=== PATIENT | male | born 1950 | race Caucasian/White ===

== ENCOUNTER 2017-08-16 13:35 | Inpatient (IN) | payer OTHER, MEDICARE ==
[~2017-08-16] VITALS: Ht 182.9 cm; Wt 76.8 kg
[2017-10-04] MEDS ORDERED: TYLENOL 325MG325 MG PO (16:07)
[2017-10-04] MEDS ORDERED: NORVASC 10MG10 MG PO (16:07)
[2017-10-07] VITALS (11 sets, daily range): BP systolic 122–160; BP diastolic 72–84; PULSE 60–100; TEMP 97.6–98.6
[2017-10-07] MEDS ORDERED: FOLIC ACID0.4 MG PO (06:00)
[2017-10-07] MEDS ORDERED: VITAMINC1000TA (06:00)
[2017-10-07] MEDS ORDERED: FERROUS SU325 MG/TAB PO (06:00)
[2017-10-07 07:08] LABS: CALCIUM 9.5 mg/dL (8.4-10.2); CREATININE, serum 1.79 mg/dL (0.66-1.25); POTASSIUM 4.3 mmol/L (3.4-5.0)
[2017-10-08] VITALS (7 sets, daily range): BP systolic 126–150; BP diastolic 66–75; PULSE 74–91; TEMP 98–98.5
[2017-10-08] MEDS ORDERED: ULTRAM 50MG TAB50 MG PO (06:03)
[2017-10-08] MEDS ORDERED: NORCO 325 MG-7.1 TAB PO (06:03)
[2017-10-08] MEDS ORDERED: XARELTO10 MG PO (06:04)
[2017-10-08] MEDS ORDERED: CELEBREX 200MG200 MG PO (06:04)
[2017-10-08 07:35] LABS: HEMOGLOBIN 8.6 g/dl (13.5-18.0)
[2017-10-09 04:47] VITALS: BP 135/76; PULSE 100; TEMP 98
[2017-10-09 06:11] LABS: HEMATOCRIT 23.6 % (42.0-52.0); HEMOGLOBIN 7.6 g/dl (13.5-18.0)
[2017-10-09 07:07] VITALS: BP 138/64; PULSE 84; TEMP 97.8
[2017-10-09 08:40] VITALS: BP 129/66
[2017-10-09 11:19] VITALS: BP 142/69; PULSE 87; TEMP 98
[2017-10-09 16:00] VITALS: BP 149/77; PULSE 94; TEMP 98.4
[2017-10-09 20:00] VITALS: BP 145/95; PULSE 106; TEMP 98.9
[2017-10-10 04:55] VITALS: BP 130/68; PULSE 91; TEMP 98.3
[2017-10-10 07:14] LABS: HEMATOCRIT 24.6 % (42.0-52.0); HEMOGLOBIN 7.9 g/dl (13.5-18.0)
[2017-10-10 08:00] VITALS: BP 160/61; PULSE 97; TEMP 98.5
== END 2017-10-10 10:25 | disposition swing bed (61) | DRG 462 ==
LOC: JCC 10-07 05:14
PROVIDERS: Nurse Anesthetist, Certified Registered; Orthopaedic Surgery; Physician Assistant
PROC: 0SRC0J9 Replacement of Right Knee Joint with Synthetic Substitute, Cemented, Open Approach (ICD-10-PCS; 2017-10-07)
PROC: 0SRD0J9 Replacement of Left Knee Joint with Synthetic Substitute, Cemented, Open Approach (ICD-10-PCS; principal; 2017-10-07 07:30)
DX: M17.0 Bilateral primary osteoarthritis of knee (principal)
CPT/HCPCS: A4314; A9284; C1713; C1776; J0690; J1100; J1885; J2250; J2405; J2704; J3010; J7120; J7121

== ENCOUNTER → 2017-09-02 | Outpatient (CLI) | payer OTHER | LOC: COL.RAD 08:06 | DX: M17.0 Bilateral primary osteoarthritis of knee (principal) ==

== ENCOUNTER → 2017-09-30 | Outpatient (CLI) | payer OTHER | LOC: COL.LAB 08:23 | DX: Z01.812 Encounter for preprocedural laboratory examination (principal); M17.0 Bilateral primary osteoarthritis of knee ==

== ENCOUNTER 2024-06-04 08:05 | Inpatient (IN) | payer MEDICARE, OTHER ==
[~2024-06-04] VITALS: Ht 182.9 cm; Wt 68.8 kg
[2024-06-04] VITALS (7 sets, daily range): BP systolic 120–148; BP diastolic 66–77; PULSE 83–99; TEMP 98.5–98.9
[~2024-06-04 08:05] MED LIST: CELEBREX 200MG200 MG PO; FERROUS SU325 MG/TAB PO; FOLIC ACID0.4 MG PO; NORCO 325 MG-7.1 TAB PO; NORVASC 10MG10 MG PO; TYLENOL 325MG325 MG PO; ULTRAM 50MG TAB50 MG PO; VITAMINC1000TA; XARELTO10 MG PO
[2024-06-04] MEDS ORDERED: Albuterol/Ipratropium 3 MG-0.5 MG/3 ML Neb Soln IH ONE (08:15)
[2024-06-04 08:23] LABS: HEMATOCRIT 48.1 % (42.0-52.0); HEMOGLOBIN 15.9 g/dl (13.5-18.0); MEAN CELL VOLUME 94 fl (80.0-100.0); MEAN CORPUSCULAR HEMOGLOBIN 31 pg (27-31); MEAN CORPUSCULAR HGB CONC 33 g/dl (33.0-37.0); MEAN PLATELET VOLUME 9.8 fl (7.4-10.4); PLATELET COUNT 183 K/mm3 (130-400); RED BLOOD COUNT 5.11 M/mm3 (4.20-5.60); REDCELL DISTRIBUTION WIDTH-CV 13.8 % (11.5-14.5)
[2024-06-04 08:29] LABS: PROTHROMBIN TIME 11.4 SECONDS (9.7-12.8)
[2024-06-04] MEDS ORDERED: Acetaminophen 500 MG TAB PO ONE (08:30)
[2024-06-04 08:36] LABS: ARTERIAL BLOOD GAS HCO3 26.1 meq/L (22-26); ARTERIAL BLOOD GAS PCO2 35.5 mmHg (35-45); ARTERIAL BLOOD GAS PO2 82.6 mmHg (80-100); ARTERIAL BLOOD GAS pH 7.48 (7.35-7.45)
[2024-06-04 08:44] LABS: ALBUMIN 3.1 g/dL (3.4-4.8); BILIRUBIN,TOTAL 0.5 mg/dL (0.2-1.2); CREATININE, serum 2.07 mg/dL (0.72-1.25); POTASSIUM 4.6 mEq/L (3.5-4.5); TOTAL PROTEIN 6.3 g/dl (6.2-8.1)
[2024-06-04 08:53] LABS: TROPONIN-I 0.022 ng/mL (0.00-0.033)
[2024-06-04] MEDS ORDERED: MIRALAX PA17 GM/Dose PO (09:12)
[2024-06-04] MEDS ORDERED: ASPIRIN 81M81 MG/TA2 PO (09:12)
[2024-06-04] MEDS ORDERED: VITAMIN D31000 IU PO (09:15)
[2024-06-04] MEDS ORDERED: KEPPRA 500MG500 MG PO (09:16)
[2024-06-04] MEDS ORDERED: PROTONIX 40MG T40 MG PO (09:16)
[2024-06-04] MEDS ORDERED: PREDNISONE10 MG PO (09:17)
[2024-06-04] MEDS ORDERED: VITAMINC1000TA (09:17)
[2024-06-04] MEDS ORDERED: TRELEGY ELLIPT1 EACH IH (09:18)
[2024-06-04] MEDS ORDERED: REMERON 15M15 MG/TA1 PO (09:18)
[2024-06-04] MEDS ORDERED: LIPITOR20 MG PO (09:18)
[2024-06-04] MEDS ORDERED: Iohexol 300 - 100 ML VIAL IV ONE (09:19)
[2024-06-04] MEDS ORDERED: NS 100 ML IV SCH (09:19)
[2024-06-04] MEDS ORDERED: ENSURE 237 ML237 ML PO (09:19)
[2024-06-04] MEDS ORDERED: TYLENOL 500MG500 MG (09:22)
[2024-06-04] MEDS ORDERED: LEVOXYL0.05 MG PO (09:23)
[2024-06-04] MEDS ORDERED: PROAIR HFA0.09 MG/AC IH (09:23)
[2024-06-04 10:23] LABS: EOSINOPHIL 2 % (0-4); LYMPHOCYTE 4 % (20.0-51.0); NEUTROPHILS 83 % (42.0-75.2); PLATELET ESTIMATE NORMAL (NORMAL)
[2024-06-04] MEDS ORDERED: methylPREDNISolone Sod Succ 125 MG/2 ML VIAL IV ONE (11:00)
[2024-06-04] MEDS ORDERED: Acetaminophen 500 MG TAB PO PRN (12:45)
[2024-06-04] MEDS ORDERED: Ondansetron 4 MG/2 ML VIAL IV PRN (12:45)
[2024-06-04] MEDS ORDERED: Albuterol/Ipratropium 3 MG-0.5 MG/3 ML Neb Soln IH PRN (13:00)
[2024-06-04] MEDS ORDERED: methylPREDNISolone Sod Succ 125 MG/2 ML VIAL IV SCH (13:00)
[2024-06-04] MEDS ORDERED: Albuterol/Ipratropium 3 MG-0.5 MG/3 ML Neb Soln IH SCH (14:00)
--- NOTE | 2024-06-04 15:16 | NUR ---
PATIENT ARRIVED TO MEDICAL FLOOR AT APPROX 1450. PATIENT IS ALERT AND ORIENTED. WITH PATIENT. VSS. PATIENT STABLE ON 9L VIA OXYMASK. PATIENT'S RR 30S-LOW 40S AND SHALLOW. LUNG SOUNDS ARE DIMINISHED. DENIES PAIN OR DISCOMFORT, JUST DIFFICULTY BREATHING. THIS RN ATTEMPTED TO CALL [facility] FOR MEDICATION REC, BUT LEFT A VOICEMAIL. ADMISSION ASSESSMENT AND INTAKE COMPLETE. BUTTOCKS IS RED, BLANCHABLE, AND INTACT. PATIENT STATES HE IS CONTINENT OF BOWEL AND BLADDER. THIS RN EDUCATED PATIENT TO CALL [facility] NEEDING TO GET UP AND USE RR, D/T SOA AND O2 TUBING. PATIENT AGREES. DENIES FURTHER NEEDS OR CONCERNS AT THIS TIME.
--- NOTE | 2024-06-04 15:35 | NUR ---
THIS RN CALLED [facility] RN TO COMPLETE MED REC.
--- NOTE | 2024-06-04 15:40 | NUR ---
FOUND PT ON 8-9LPM OXYMASK 98%SPO2. SCHEDULED DUONEB ADMINISTERED. TITRATED TO 6 LPM OXYMASK 97%SPO2 AT THIS TIME.
[2024-06-04] MEDS ORDERED: Budesonide Neb Susp 0.5 MG/2 ML AMP IH SCH (19:00)
[2024-06-04] MEDS ORDERED: levETIRAcetam 500 MG TAB PO SCH (21:00)
[2024-06-04] MEDS ORDERED: Mirtazapine 15 MG TAB PO SCH (21:00)
[2024-06-04] MEDS ORDERED: Atorvastatin 20 MG TAB PO SCH (21:00)
[2024-06-04] MEDS ORDERED: guaiFENesin Oral Soln 200 MG/10 ML UD PO PRN (21:30)
[2024-06-05] VITALS (12 sets, daily range): BP systolic 102–151; BP diastolic 61–86; PULSE 84–115; TEMP 97.2–98.2
[2024-06-05 07:03] LABS: HEMOGLOBIN 14.2 g/dl (13.5-18.0); MEAN CELL VOLUME 91 fl (80.0-100.0); MEAN CORPUSCULAR HEMOGLOBIN 32 pg (27-31); MEAN CORPUSCULAR HGB CONC 35 g/dl (33.0-37.0); MEAN PLATELET VOLUME 10.2 fl (7.4-10.4); PLATELET COUNT 189 K/mm3 (130-400); REDCELL DISTRIBUTION WIDTH-CV 13.7 % (11.5-14.5)
[2024-06-05 07:20] LABS: CALCIUM 9.4 mg/dL (8.4-10.2); CREATININE, serum 2.02 mg/dL (0.72-1.25)
[2024-06-05 08:27] LABS: BAND 3 % (0-10); LYMPHOCYTE 3 % (20.0-51.0); NEUTROPHILS 87 % (42.0-75.2); PLATELET ESTIMATE NORMAL (NORMAL)
[2024-06-05] MEDS ORDERED: Umeclidinium/Vilanterol 62.5-25 MCG INHALATION/INHALER IH SCH (09:00)
[2024-06-05] MEDS ORDERED: Fluticasone/Umeclidinium/Vilanterol **** subs to Budesonide + Umeclid/Vilant IH SCH (09:00)
--- NOTE | 2024-06-05 09:50 | NUR ---
PATIENT RESTING IN BED. ALERT AND ORIENTED. SHIFT ASSESSMENT COMPLETE. PATIENT BEGAN GETTING AGITATED WHILE SPEAKING TO THIS RN. PATIENT STATED "I DON'T DRINK WATER OUT OF A WATER BOTTLE, I DON'T EAT EGSS. I DON'T TAKE SHOWERS, I HAVEN'T TAKEN A SHOWER SINCE THE MIDDLE SCHOOL. I AM A 73 YEAR OLD MAN AND I DON'T CHANGE THE WAY I DO THINGS." THIS RN ATTEMPTED TO REASSURE PATIENT THAT WE CAN'T ALWAYS ANICIPATE THESE NEEDS AND THE PATIENT SHOULD RELAY THESE REQUESTS TO STAFF. 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 DENIES FURTHER NEEDS OR CONCERNS AT THIS TIME.
--- NOTE | 2024-06-05 10:45 | NUR ---
sawmill relief worker notes pt is in isolation for COVID-19. BALBIR called , Yessenia [phone] to discuss intake information. She reports pt resides at [facility]. Pt obtains medications from [facility] (Remedi) with no difficulties. She confirms he has Medicare A/B and [employer] Insurance. states he needs assistance with ADLS and uses a FWW and oxygen for DME. She reports to be DPOA-HC and [facility] has a copy. was agreeable to pt returning to [facility] for rehab. BALBIR called Darren at [facility] who will email main BALBIR Plummer the DPOA. Discharge Plan: return to [facility]
--- NOTE | 2024-06-05 14:11 | NUR ---
transit survey worker emailed updates to Darren at [facility]. Discharge Plan: return to SNF
--- NOTE | 2024-06-05 17:36 | NUR ---
PATIENT STATES HE HAD A GREAT DAY. HE WAS PLEASED WITH THE PRODUCTIVE DAY, HAVING A BATH, SEEING PT/OT, ETC. PATIENT APPEARS MORE COMFORTABLE. AT BEDSIDE. DENIES FURTHER NEEDS OR CONCERNS AT THIS TIME.
--- NOTE | 2024-06-05 20:09 | NUR ---
PT SWITCHED FROM NC TO OXYMASK POST BREATHING TX.
[2024-06-06] VITALS (10 sets, daily range): BP systolic 109–136; BP diastolic 63–78; PULSE 91–117; TEMP 97.2–97.9
[2024-06-06 06:46] LABS: HEMATOCRIT 43.7 % (42.0-52.0); HEMOGLOBIN 14.7 g/dl (13.5-18.0); MEAN CELL VOLUME 94 fl (80.0-100.0); MEAN CORPUSCULAR HEMOGLOBIN 32 pg (27-31); MEAN CORPUSCULAR HGB CONC 34 g/dl (33.0-37.0); MEAN PLATELET VOLUME 9.9 fl (7.4-10.4); PLATELET COUNT 227 K/mm3 (130-400); RED BLOOD COUNT 4.64 M/mm3 (4.20-5.60); REDCELL DISTRIBUTION WIDTH-CV 14.3 % (11.5-14.5)
[2024-06-06 07:01] LABS: CALCIUM 9.7 mg/dL (8.4-10.2); CREATININE, serum 2.34 mg/dL (0.72-1.25); POTASSIUM 4.7 mEq/L (3.5-4.5)
--- NOTE | 2024-06-06 07:54 | NUR ---
LAB CALLED AT 06:49 AM WITH A WBC VALUE OF 29. DR. SNELL WAS NOTIFIED AT 07:25 AM. NO NEW ORDERS AT THIS TIME.
[2024-06-06 08:00] LABS: BAND 1 % (0-10); LYMPHOCYTE 7 % (20.0-51.0); NEUTROPHILS 90 % (42.0-75.2); PLATELET ESTIMATE NORMAL (NORMAL)
--- NOTE | 2024-06-06 08:00 | NUR ---
PATIENT ALERT AND ORIENTED X4. PATIENT ON 5L 02/NC. PATIENT HYPERVENTILATING UPON ENTERING ROOM. PATIENT EDUCATED ON BREATHING TECHNIQUES TO HELP STAY CALM. PATIENT ON SHIFT ASSEEMENT COMPLETED. PATIENT CALL LIGHT WITHIN REACH. BED AT LOWEST POSITION. NO FURTHER NEEDS AT THIS TIME. BED ALARM ON.
[2024-06-06] MEDS ORDERED: Nystatin Oral Susp 100,000 UNITS/ML 5 ML UD PO SCH (13:00)
[2024-06-06] MEDS ORDERED: methylPREDNISolone Sod Succ 125 MG/2 ML VIAL IV SCH (21:00)
--- NOTE | 2024-06-06 21:15 | NUR ---
Scheduled meds administered per OCT. Pt. c/o 04/04 pain and requests PRN Tylenol and guifenesin. Both administered per OCT. Shift assessment complete. Pt is very anxious- respirations are shallow and tachypneic at rest, but slow when pt is reminded to breath deeply. Education provided regarding box breathing technique. Pt. expresses understanding and demonstrates correctly. Skin is reddened at gluteal cleft. Barrier cream applied. Feet are dry and flaking. No further outstanding findings. Pt. denies further needs or requests. Call light in reach.
[2024-06-07] VITALS (12 sets, daily range): BP systolic 115–144; BP diastolic 67–79; PULSE 85–97; TEMP 97.5–98
--- NOTE | 2024-06-07 03:25 | NUR ---
PCT reports pt. is requesting something to help him sleep. Pt. is resting in bed w/ eyes closed and respirations even & unlabored when this nurse attempted to discuss needs with patient.
--- NOTE | 2024-06-07 05:14 | NUR ---
Administered scheduled meds per OCT. Pt. resting in bed w/ call light in reach. Fall precautions in place.
[2024-06-07 06:22] LABS: MEAN CELL VOLUME 95 fl (80.0-100.0); MEAN CORPUSCULAR HEMOGLOBIN 31 pg (27-31); MEAN CORPUSCULAR HGB CONC 33 g/dl (33.0-37.0); MEAN PLATELET VOLUME 10.5 fl (7.4-10.4); PLATELET COUNT 202 K/mm3 (130-400); RED BLOOD COUNT 4.01 M/mm3 (4.20-5.60); REDCELL DISTRIBUTION WIDTH-CV 14.6 % (11.5-14.5)
[2024-06-07 06:39] LABS: CALCIUM 8.8 mg/dL (8.4-10.2); CREATININE, serum 2.15 mg/dL (0.72-1.25); POTASSIUM 5.6 mEq/L (3.5-4.5)
[2024-06-07 06:49] LABS: HEMOGLOBIN 12.5 g/dl (13.5-18.0)
--- NOTE | 2024-06-07 07:20 | NUR ---
automobile glass technician called to report hgb delta change and critical WBC. Hospitalist, Deejay, notified. No new orders received.
[2024-06-07 07:34] LABS: BAND 1 % (0-10); LYMPHOCYTE 6 % (20.0-51.0); NEUTROPHILS 91 % (42.0-75.2); PLATELET ESTIMATE NORMAL (NORMAL)
--- NOTE | 2024-06-07 09:45 | NUR ---
PATIENT ALERT AND ORIENTED X4.ON 5L 02/NC, DENIES PAIN AT THIS TIME. PATIENT REPORTS NOT BEING OUT OF BED FOR THREE DAYS. THIS NURSE ENCOURAGE WITH ASSISTANCE TO MOVE TO RECLINER AND INFORMED THAT THIS NURSE WOULD CALL PHYSICAL THERAPY TO GIVE PATIENT THERAPY. PATIENT HAS PREVIOUSLY REFUSED TO BE MOVED OUT OF BED UPON PCT RACH ASKING FOR HYGENE CARE. PATIENT WAS WET AND HAS BEEN LAYING IN URINE FOR SOMETIME DUE TO PATIENT REFUSING TO BE CLEANED AND WIPED DOWN. THIS PATIENT EDUCATED PATIENT ABOUT SKIN INTEGRITY AND HOW IRRITATING IT CAN BE IF PATIENT KEPT REFUSING PERICARE. THIS NURSE CAME TO AGREEMENT WITH PATIENT ABOUT PERICARE AND THIS NURSE ASSISTED PATIENT ON PERICARE AND NICOLAS CHANGE. BARRIER CREAM APPLIED TO SCROTAL AREA AND BOTTOM. PATIENT WAS COMPLIANT. CALL LIGHT WITHIN REACH. BED AT LOWEST POSITION. BED ALARM ON. AT LOWEST POSITION.
--- NOTE | 2024-06-07 11:28 | NUR ---
SW sent updates to [facility]. SW will continue to follow.
[2024-06-07] MEDS ORDERED: Sodium Zirconium Cyclosilicate for Oral Susp 10 GM PACKET PO ONE (16:15)
[2024-06-07] MEDS ORDERED: traZODone 50 MG TAB PO SCH (21:00)
--- NOTE | 2024-06-07 23:19 | NUR ---
Patient assessed around 2104. Alert and oriented, and able to make needs known. Complained of generalized discomfort, and given PRN Tylenol as requested. Peripheral INT to left forearm. Reports SOB with exertion. LS CTA. HRR. BSAx4. External catheter in place, clear yellow urine. Voices no questions, needs, or concerns at this time. In bed with call light within reach. High fall risk precautions in place. Bed alarm on.
[2024-06-08] VITALS (10 sets, daily range): BP systolic 121–154; BP diastolic 55–81; PULSE 62–97; TEMP 97.5–98.5
--- NOTE | 2024-06-08 02:40 | NUR ---
PT REFUSED BREATHING TX STATING "IT'S BEST TO NOT WAKE ME UP", IF SLEEPING. PT SLEEPING, ON 4L NC WITH BUBBLER SATTING 94%. PT IN NO DISTRESS AT THIS TIME.
--- NOTE | 2024-06-08 05:48 | NUR ---
Patient reports sleeping well during the night. Denies having pain and discomfort this morning. Voices no questions, needs, or concerns at this time. In bed with call light within reach. High fall risk precautions in place. Bed alarm on.
--- NOTE | 2024-06-08 05:50 | NUR ---
Continues on oxygen at 4 L/min via NC. Contact/Droplet+ isoloation continues for Covid.
[2024-06-08 07:10] LABS: CALCIUM 8.8 mg/dL (8.4-10.2); CREATININE, serum 2.13 mg/dL (0.72-1.25); POTASSIUM 5.2 mEq/L (3.5-4.5)
[2024-06-08] MEDS ORDERED: predniSONE 20 MG TAB PO SCH (09:00)
--- NOTE | 2024-06-08 09:30 | NUR ---
PATIENT RESTING IN BED THIS MORNING. FINISHED BREAKFAST. PATIENT ON 4L 02/NC. PATIENT MORNING MEDICATION GIVEN. DENIES PAIN AT THIS TIME.PATIENT DENIES FURTHER NEEDS AT THIS TIME. CALL LIGHT WITHIN REACH. BED AT LOWEST POSITION.
[2024-06-08] MEDS ORDERED: Sodium Zirconium Cyclosilicate for Oral Susp 10 GM PACKET PO ONE (11:15)
--- NOTE | 2024-06-08 15:17 | NUR ---
Radiology Special Procedure Tech attended clinical rounds with the team and patient is not ready for discharge at this time. BALBIR updated Darren at [facility] and updates were sent via secure email. BALBIR attended multi-disciplinary meeting to discuss discharge planning. Patient not ready for discharge today and main concern is how much his oxygen sats drop with ambulation. Discharge Plan; [facility]
--- NOTE | 2024-06-08 20:00 | NUR ---
UPON SHIFT ASSESSMENT, MAME WAS AWAKE IN BED AND A&0 X4. NC WITH BUBBLER AND O2 RUNNING 5L. DDYSPNEA AT REST WAS OBSERVED AND PATIENT EXHIBITED NASAL FLARING. ASSESSMENT QUESTIONS CAUSED INCREASED WOB. TRACHEA IS MIDLINE. PATIENT DENIES CHEST PAIN. EXTERNAL CATHETER DISLODGED. NEW EXTERNAL CATHETER PLACED-PATENT AND DRAINING CLEAR YELLOW URINE. BARRIER CREAM PLACED IN GLUTTEAL CLEFT FOR MILD, BLANCHABLE ERYTHEMA. VS ARE WNL AND PATIENT STATES NO NEEDS AT THIS TIME. CALL LIGHT WITHIN REACH. FALL PRECAUTIONS IN PLACE.
[2024-06-09] VITALS (12 sets, daily range): BP systolic 120–138; BP diastolic 53–77; PULSE 83–100; TEMP 97.8–98.4
[2024-06-09] MEDS ORDERED: Melatonin 3 MG TAB PO SCH (00:46)
--- NOTE | 2024-06-09 00:47 | NUR ---
CALL PLACED TO [facility]OSPITALIST[facility]YAL. PATIENT C/O RESTLESSNESS "CAN'T SLEEP." TORB FOR 6MG PO MELATONIN GIVEN.
[2024-06-09 09:03] LABS: HEMATOCRIT 39.9 % (42.0-52.0); HEMOGLOBIN 13.1 g/dl (13.5-18.0); MEAN CELL VOLUME 95 fl (80.0-100.0); MEAN CORPUSCULAR HEMOGLOBIN 31 pg (27-31); MEAN CORPUSCULAR HGB CONC 33 g/dl (33.0-37.0); MEAN PLATELET VOLUME 10.1 fl (7.4-10.4); PLATELET COUNT 197 K/mm3 (130-400); RED BLOOD COUNT 4.22 M/mm3 (4.20-5.60); REDCELL DISTRIBUTION WIDTH-CV 14.4 % (11.5-14.5)
[2024-06-09 09:10] LABS: CALCIUM 8.9 mg/dL (8.4-10.2); CREATININE, serum 1.95 mg/dL (0.72-1.25); POTASSIUM 4.9 mEq/L (3.5-4.5)
[2024-06-09 09:38] LABS: BAND 3 % (0-10); EOSINOPHIL 1 % (0-4); LYMPHOCYTE 10 % (20.0-51.0); METAMYELOCYTE 6 % (0-0); MYELOCYTE 1 % (0-0); NEUTROPHILS 72 % (42.0-75.2); NUCLEATED RED BLOOD CELL 1 (0-6); PLATELET ESTIMATE NORMAL (NORMAL)
--- NOTE | 2024-06-09 11:00 | NUR ---
PATIENT ALERT AND ORIENTED X4. ON 5L 02/OXYMASK. PATIENT REPORTS PAIN TO TONGUE AND THROAT WITH SWALLOWING DOES NOT WANT TO RATE THE PAIN AT THIS TIME. PATIENT CONDOM CATH INPLACE. DENIES SOA. CALL LIGHT WITHIN REACH. BED AT LOWEST POSITION.
--- NOTE | 2024-06-09 13:34 | NUR ---
Fermentologist attended clinical rounds with the team and patient is on four liters at rest (baseline) and up to seven liters with ambulation. BALBIR contacted Darren and sent updates via secure email. Unfortunately, they do not have a concentrator that goes up to ten liters. BALBIR contacted [facility] and was advised they have them ordered but no anticipated arrival time is available. BALBIR met with patient's spouse to provide update. Discharge Plan; [facility]
--- NOTE | 2024-06-09 19:00 | NUR ---
Bedside report received from KEARA Grijalva. Pt awake in bed with no complaints. Call light within reach and fall preecautions in place.
[2024-06-10] VITALS (13 sets, daily range): BP systolic 117–135; BP diastolic 65–82; PULSE 77–107; TEMP 97.8–98.4
[2024-06-10 07:39] LABS: HEMATOCRIT 39.6 % (42.0-52.0); HEMOGLOBIN 13.3 g/dl (13.5-18.0); MEAN CELL VOLUME 95 fl (80.0-100.0); MEAN CORPUSCULAR HEMOGLOBIN 32 pg (27-31); MEAN CORPUSCULAR HGB CONC 34 g/dl (33.0-37.0); MEAN PLATELET VOLUME 10.3 fl (7.4-10.4); PLATELET COUNT 203 K/mm3 (130-400); RED BLOOD COUNT 4.19 M/mm3 (4.20-5.60); REDCELL DISTRIBUTION WIDTH-CV 14.2 % (11.5-14.5)
[2024-06-10 07:56] LABS: CALCIUM 8.9 mg/dL (8.4-10.2); CREATININE, serum 1.79 mg/dL (0.72-1.25); POTASSIUM 4.9 mEq/L (3.5-4.5)
[2024-06-10 08:46] LABS: BAND 10 % (0-10); LYMPHOCYTE 8 % (20.0-51.0); METAMYELOCYTE 7 % (0-0); NEUTROPHILS 68 % (42.0-75.2); PLATELET ESTIMATE NORMAL (NORMAL)
--- NOTE | 2024-06-10 09:00 | NUR ---
PATIENT IN BED.ALERT AND ORIENTED X4. PATIENT REPORTS PAIN TO TONGUE/THROAT. PATIENT TONGUE IS RED/IRRITATED/ SORES TO SIDE OF TONGUE. PATIENT ON 4L 02/OXYMASK WITH HUMIDIFIER ATTACHED TO IT. PATIENT NOSTRILS ARE RED/ MILDLY IRRITATED. PATIENT DENIED ANY FURTHER NEEDS AT THIS TIME. PATIENT CALL LIGHT WITHIN REACH. BED AT LOWEST POSITION. BED ALARM ON.
[2024-06-10] MEDS ORDERED: Lidocaine 2% Viscous 15 ML UNIT DOSE MM PRN (10:15)
[2024-06-10] MEDS ORDERED: Lidocaine 2% Viscous 15 ML UNIT DOSE MM ONE (10:15)
--- NOTE | 2024-06-10 10:46 | NUR ---
Pt unable to ambulate. Had pt stand up at bedside, pt became extermely SOA. Increased o2 to 7LPM however pt became unstable and had to sit down. Spo2 returned to 88% on 7LPM.
--- NOTE | 2024-06-10 13:59 | NUR ---
Medical Equipment Repair Technician faxed clinical updates to [facility] including exercise oximetry. Patient still requiring 7 liters with ambulation. Discharge Plan; [facility] once there is a 10 liter concentrator available.
--- NOTE | 2024-06-10 15:31 | NUR ---
It Support Manager attended multidisciplinary meeting with Hospitalist team and therapy to discuss discharge plan. Hospitalist inquired about [facility] due to patient's increased oxygen needs with ambulation. SW contacted Magdy at [facility] and sent referral for review.
--- NOTE | 2024-06-10 18:03 | NUR ---
patient has been refusing nyastatin medication. patient educated on the importance of taking it. patient refused after multiple times of offering medication. family at bedisde. adviced patient to take it patient continued to refuse.
--- NOTE | 2024-06-10 19:53 | NUR ---
Bedside report received from KEARA Grijalva. Pt resting in bed awake. Call light within reach.
--- NOTE | 2024-06-10 20:51 | NUR ---
Pt presses call light and expresses to PCT Hayes frustration regarding oral medication. This nurse went into pt room to allow pt to express frustration about pain in mouth and not wanting to take oral medication. This nurse provided education to pt about need for medication. Pt continued to raise voice at this nurse and so this nurse informed pt that this nurse was going to step out of room to allow pt to gather emotions to prevent pt from having increased work of breathing. This nurse contacted pt spouse to gather more understanding about pt frustration and pt spouse expressed that pt is having increased pain with mouth sores and is fearful of taking medication due to pain. Spouse suggested to this nurse to give pt time before talking to pt about medication.
--- NOTE | 2024-06-10 21:19 | NUR ---
Upon entry to room pt was screaming at this cellphone. This nurse informed pt that he cannot scream due to other pts on the floor. Pt stated, "there are a hundred and one pts and I am number one, I can yell if I want". This nurse provided education to pt about oral medications and PRN Lidocaine swish to follow oral medication to relieve pain. Pt agreeable to take medications at this time. All PO medications administered per emar. Shift assessment completed. Pt began yelling at this nurse during assessment about nursing/sanitation worker staff not treating him as number pt. This nurse provided education to pt regarding that there are multiple pts on medical floor and staff tries to come into pt room as able. Pt continues to get upset with nurse about education provided. This nurse left pt room at this time to allow pt to gather emotions. Pt has no request upon leaving room. Call light within reach and fall precautions in place.
[2024-06-11] VITALS (12 sets, daily range): BP systolic 110–137; BP diastolic 69–86; PULSE 85–93; TEMP 97.6–99.2
[2024-06-11 06:49] LABS: HEMATOCRIT 46.3 % (42.0-52.0); MEAN CELL VOLUME 95 fl (80.0-100.0); MEAN CORPUSCULAR HEMOGLOBIN 32 pg (27-31); MEAN CORPUSCULAR HGB CONC 34 g/dl (33.0-37.0); MEAN PLATELET VOLUME 10.1 fl (7.4-10.4); PLATELET COUNT 229 K/mm3 (130-400); REDCELL DISTRIBUTION WIDTH-CV 14.2 % (11.5-14.5)
[2024-06-11 06:50] LABS: HEMOGLOBIN 15.5 g/dl (13.5-18.0)
[2024-06-11 07:12] LABS: CALCIUM 9.8 mg/dL (8.4-10.2); CREATININE, serum 1.83 mg/dL (0.72-1.25); POTASSIUM 5.1 mEq/L (3.5-4.5)
[2024-06-11 08:05] LABS: BAND 4 % (0-10); EOSINOPHIL 1 % (0-4); LYMPHOCYTE 12 % (20.0-51.0); METAMYELOCYTE 2 % (0-0); MYELOCYTE 2 % (0-0); NEUTROPHILS 70 % (42.0-75.2)
[2024-06-11 08:07] LABS: PLATELET ESTIMATE NORMAL (NORMAL)
--- NOTE | 2024-06-11 15:17 | NUR ---
Top Former spoke with Hospitalist who advised during rounding they discussed recommendation for LTACH. BALBIR followed up with patient's and facilitated a phone call between her and Magdy, Clinical Liason. Patient is accepted to [facility] and family is agreeable to this plan. Patient can discharge on Saturday after three nights of telemetry. BALBIR updated Darren at [facility] about change in discharge plan. Discharge Plan: [facility] on Saturday
--- NOTE | 2024-06-11 19:48 | NUR ---
Bedside report received from KEARA Ruiz. Pt awake in bed with no complaints. Call light within reach and fall precautions in place.
--- NOTE | 2024-06-11 23:19 | NUR ---
Pt in pleasant mood this evening. Shift assessment completed. VSS. Pt denies pain rating 0/10. Pt continues to have increased WOB when attempting to ambulate to BSC. All scheduled medications given per orders. Pt has no request at this time. Call light within reach and fall precautions in place.
[2024-06-12] VITALS (12 sets, daily range): BP systolic 107–125; BP diastolic 68–79; PULSE 88–109; TEMP 97.5–97.9
--- NOTE | 2024-06-12 02:36 | NUR ---
PT SWITCHED TO OXYMASK PER PT REQUEST.
[2024-06-12] MEDS ORDERED: Zinc Sulfate 220 MG CAP PO SCH (11:37)
[2024-06-12] MEDS ORDERED: Lidocaine 2% Viscous 15 ML UNIT DOSE MM SCH (12:00)
[2024-06-12] MEDS ORDERED: Ascorbic Acid 500 MG TAB PO SCH (12:00)
--- NOTE | 2024-06-12 14:24 | NUR ---
Software Intern spoke with Kathleen at [facility] confirming patient can discharge to [facility] on Saturday. Discharge Plan: [facility]
--- NOTE | 2024-06-12 14:40 | NUR ---
PT WANTS TO SLEEP
--- NOTE | 2024-06-12 22:30 | NUR ---
Scheduled meds administered per OCT. PRN guifanisine and acetaminophen administered per OCT at pt. request.Shift assessment complete. Pt. is dyspneic w/ slight activity such as repositioning in bed. Respirations are tachypneic. Education provided on box breathing technique. Pt. expresses understanding but does not demonstrate. Lung sounds are diminished over all bases. Skin is reddened at the coccyx area. Noted redness to RAAD heels. Heels floated w/ pillows. No further outstanding findings. Call light is in reach w/ fall precautions in place.
[2024-06-13] VITALS (11 sets, daily range): BP systolic 107–124; BP diastolic 67–75; PULSE 94–100; TEMP 97.5–98.2
--- NOTE | 2024-06-13 01:00 | NUR ---
PCT reports pt. is requesting acetaminophen. Pt. does not rate his pain but endorses discomfort to inside of mouth. PRN acetaminophen administered per MAR.
--- NOTE | 2024-06-13 03:48 | NUR ---
Woke pt. to administer scheduled meds. Pt. is very aggitated. He is using profanity and is upset about a "mess in the bathroom." The bathroom does not appear out of the ordinary. Pt. is difficult to reorient at this time.
[2024-06-13 06:31] LABS: HEMATOCRIT 40.2 % (42.0-52.0); HEMOGLOBIN 13.6 g/dl (13.5-18.0); MEAN CELL VOLUME 94 fl (80.0-100.0); MEAN CORPUSCULAR HEMOGLOBIN 32 pg (27-31); MEAN CORPUSCULAR HGB CONC 34 g/dl (33.0-37.0); MEAN PLATELET VOLUME 9.8 fl (7.4-10.4); PLATELET COUNT 209 K/mm3 (130-400); RED BLOOD COUNT 4.27 M/mm3 (4.20-5.60); REDCELL DISTRIBUTION WIDTH-CV 14.2 % (11.5-14.5)
[2024-06-13 06:39] LABS: CALCIUM 9.1 mg/dL (8.4-10.2); CREATININE, serum 1.83 mg/dL (0.72-1.25); POTASSIUM 4.4 mEq/L (3.5-4.5)
--- NOTE | 2024-06-13 06:41 | NUR ---
Pt. is in better spirits this morning than during the night. Currently resting in bed w/ eyes closed, respirations even and unlabored. Oxygen is at 4 L/min via oxy mask. Call light is in reach and fall precautions in place.
[2024-06-13] MEDS ORDERED: predniSONE 20 MG TAB PO SCH (09:00)
--- NOTE | 2024-06-13 09:45 | NUR ---
PATIENT SITTING UP IN CHAIR REQUESTING TO GO TO BED. THIS RN ASKED PATIENT IF HE WOULD LIKE A BED BATH AND ENCOURAGED PATIENT THAT IT MAY MAKE HIM FEEL BETTER. PATIENT REPLIED "THAT'S BULLSHIT," BUT ALLOWED THIS RN TO BATHE HIM. HAIR SHAMPOOED, BODY WASHED. THIS RN APPLIED BARRIER CREAM TO COCCYX AND BUTTOCKS. PATIENT TOLERATED WELL ON 4L VIA OXYMASK. DENIES FURTHER NEEDS OR CONCERNS AT THIS TIME.
--- NOTE | 2024-06-13 13:30 | NUR ---
TX REFUSED, PT WANTS TO SLEEP
--- NOTE | 2024-06-13 15:13 | NUR ---
BALBIR contacted [facility] in regards to pending discharge and to arrange transport for Saturday with Kathleen @[phone] unable to reach and left voicemail requesting call back.
--- NOTE | 2024-06-13 15:43 | NUR ---
SW contacted [facility] quality assurance representative Sarah Beth to confirm acceptance and address information as SW would need to set up transportation for patient. This [facility] and SW put referral in with [facility] pending approval at this time.
--- NOTE | 2024-06-13 16:27 | NUR ---
SW received call back from [facility] that they would not be able to support patient with transporation for requested time. SW contacted [facility] for same request for [facility] in [facility] pending approval at this time. SW provided contact information for follow up call. SW notified patients nurse with updates and pending approval.
[2024-06-13] MEDS ORDERED: Menthol Cough/Sore Throat LOZENGE MM PRN (16:30)
--- NOTE | 2024-06-13 20:09 | NUR ---
Bedside report received from KEARA Ruiz. Pt awake in bed watching TV with no complaints. Call light within reach and fall precautions in place.
[2024-06-14] VITALS (12 sets, daily range): BP systolic 104–134; BP diastolic 67–77; PULSE 82–92; TEMP 96.6–99.2
--- NOTE | 2024-06-14 03:54 | NUR ---
Pt slept through most of the night this shift with minimal complaints. Shift assessment completed at beginning of shift. VSS. Pt denies pain rating 0/10. INT to Rt forearm patent with no swelling, redness, or drainage. Pt has no request at this time. Call light within reach and fall precautions in place.
--- NOTE | 2024-06-14 09:00 | NUR ---
PATIENT RESTING IN BED WITH EYES CLOSED. PATIENT AROUSES TO VOICE. PATIENT IS ALERT AND ORIENTED. THIS RN ATTEMPTS TO ADMINISTER AM MEDICATIONS. PATIENT CLOSES EYES AND DOES NOT ANSWER NURSE. PATIENT REFUSES TO TAKE MEDICATIONS. WILL NOTIFIY HOSPITALIST.
--- NOTE | 2024-06-14 09:21 | NUR ---
THIS RN WAS NOTIFIED BY DEVELOPMENT GEOLOGIST THAT PATIENT HAD 6 BEAT RUN OF PSVT WITH A HR IN 160S. THIS RN CHECK ON PATIENT, PATIENT IS ASYMPTOMATIC, SLEEPING IN BED. O2 ON VIA OXYMASK. THIS RN NOTIFIED JAYDA PHILIPPE. SEE NEW ORDERS.
--- NOTE | 2024-06-14 09:52 | NUR ---
BALBIR called by Sarah Beth lyles [facility] providing a request to change day of transport to Saturday morning due to their facility urgent needs. BALBIR called [facility] to provide information and time of sweet pickle maker has been scheduled for 9am. Sarah Beth lyles [facility] called and informed of time and requested updates be sent by BALBIR which was done on this day 06/14/2024. Patient nurse and House nurse informed of update. SW will continue to follow.
--- NOTE | 2024-06-14 10:22 | NUR ---
SW was called by house nurse providing information pertaining to tranport time from [facility] with a time change of 11:30am instead of 0900. Patient nurse, patient and family informed. SW will continue to follow. Discharge plan: to [facility] car pick up driver date 06/15/2024 time 1130
[2024-06-14] MEDS ORDERED: NS 1,000 ML IV SCH (12:00)
[2024-06-14] MEDS ORDERED: Morphine 4 MG/ML VIAL IV PRN (12:15)
--- NOTE | 2024-06-14 15:43 | NUR ---
PATIENT APPEARS MORE COMFORTABLE AFTER ADMINISTRATION OF PRN MORPHINE. PATIENT IS TALKING TO STAFF, AND IS ABLE TO DRINK WATER/TAKE PILLS. TOLERATING CLEAR LIQ DIET WELL. AT BEDSIDE. TYLENOL GIVEN TO KEEP PAIN UNDER CONTROL. DENIES FURTHER NEEDS OR CONCERNS AT THIS TIME. CALL LIGHT WITHIN REACH.
--- NOTE | 2024-06-14 18:07 | NUR ---
Patient is now on room 322. at bedside. Pt. Alert and orinted x 4, seems tired. Dinner just arriving. Receiving NS 83MLS/HR ON LFA. Getting 4L O2 Oxymasc.
[2024-06-14] MEDS ORDERED: Ondansetron 4 MG/2 ML VIAL IV PRN (22:00)
--- NOTE | 2024-06-14 22:59 | NUR ---
Received report from day shift nurse. Pt is alert and lying in bed and does not look in distress at this time. Bed is in low position, bed alarms on, and call light within reach. IVF's are running at this time. Will continue with pt care.
[2024-06-15] VITALS (11 sets, daily range): BP systolic 104–147; BP diastolic 59–100; PULSE 84–98; TEMP 97–98
--- NOTE | 2024-06-15 06:12 | NUR ---
Pt had an uneventful night. Pt is on IVF's. Pt has complained of his throat hurting and only wants tylenol and morphine for it and does not want to try any thing else to see if it would help. Pt seems to work himself up and cause himself to go into distress when things are not done in a "timely manner" and doesn't seem to know when the scope is being done and worried that people don't know about it. Pt called the and stated that he needed help. This nurse talked to the about the situation. Pt's vitals have been stable throughout the night. Will give report to day shift nurse.
[2024-06-15 06:30] LABS: HEMATOCRIT 46.1 % (42.0-52.0); HEMOGLOBIN 14.9 g/dl (13.5-18.0); MEAN CELL VOLUME 98 fl (80.0-100.0); MEAN CORPUSCULAR HEMOGLOBIN 32 pg (27-31); MEAN CORPUSCULAR HGB CONC 32 g/dl (33.0-37.0); MEAN PLATELET VOLUME 9.7 fl (7.4-10.4); PLATELET COUNT 171 K/mm3 (130-400); RED BLOOD COUNT 4.72 M/mm3 (4.20-5.60); REDCELL DISTRIBUTION WIDTH-CV 14.3 % (11.5-14.5)
[2024-06-15 06:48] LABS: CALCIUM 8.7 mg/dL (8.4-10.2); CREATININE, serum 1.79 mg/dL (0.72-1.25); POTASSIUM 4.2 mEq/L (3.5-4.5)
[2024-06-15] MEDS ORDERED: Phenylephrine 10 MG/ML VIAL ONE (07:18)
--- NOTE | 2024-06-15 07:53 | NUR ---
Patient is back from EGD. Post op started. Patient sleeping right now, easily arousing.
[2024-06-15 08:49] LABS: BAND 3 % (0-10); EOSINOPHIL 2 % (0-4); LYMPHOCYTE 17 % (20.0-51.0); NEUTROPHILS 71 % (42.0-75.2); PLATELET ESTIMATE NORMAL (NORMAL)
--- NOTE | 2024-06-15 09:00 | NUR ---
Patient is resting in bed, alert and oriented x 4, he just had EGD, awaiting for hospitalist. He would like some pain medication PRN provided. Assessment completed, meds to be given by Student nurse. at bedside. No further needs at this time. Call light within reach.
[2024-06-15] MEDS ORDERED: NYSTATIN OR100 MU/ML PO (10:26)
[2024-06-15] MEDS ORDERED: LIDOCAINE HC20 MG/M2 MM (10:28)
[2024-06-15] MEDS ORDERED: PREDNISONE20 MG PO (10:29)
--- NOTE | 2024-06-15 12:52 | NUR ---
Patient was picked up by EMS. will follow them. Telemetry and IV access were discontinued.
--- NOTE | 2024-06-15 13:55 | NUR ---
Campus Aide contacted Kathleen at [facility] who advised they still can accept patient today. SW contacted [facility] and confirmed picking supervisor time of 1130. SW attended clinical rounds with the team and patient is cleared for discharge today. Patient's is at bedside and in agreement. Discharge Plan; [facility]
== END 2024-06-15 12:50 | disposition short-term general hospital (02) | DRG 196 ==
LOC: COL.ER 08:05 → MEDICAL 12:36 → EDBEDREQ 13:32 → MEDICAL 06-11 21:00 → SURG 06-14 18:03
PROVIDERS: Family Medicine; Internal Medicine; Physician Assistant; ADMIT Internal Medicine
DX: J84.9 Interstitial pulmonary disease, unspecified (principal); J96.21 Acute and chronic respiratory failure with hypoxia; U07.1 COVID-19; B37.0 Candidal stomatitis; I47.19 Other supraventricular tachycardia; J98.11 Atelectasis; J84.10 Pulmonary fibrosis, unspecified; N18.9 Chronic kidney disease, unspecified; G40.909 Epilepsy, unspecified, not intractable, without status epilepticus; I12.9 Hypertensive chronic kidney disease with stage 1 through stage 4 chronic kidney disease, or unspecified chronic kidney disease; E03.9 Hypothyroidism, unspecified; R13.10 Dysphagia, unspecified; U09.9 Post COVID-19 condition, unspecified; J44.9 Chronic obstructive pulmonary disease, unspecified; Z98.890 Other specified postprocedural states; Z79.899 Other long term (current) drug therapy; Z79.82 Long term (current) use of aspirin; Z88.0 Allergy status to penicillin; E87.5 Hyperkalemia; Z79.890 Hormone replacement therapy
CPT/HCPCS: A9270; J1450; J1650; J1956; J2270; J2371; J2704; J2919; J7030; J7512; Q9967